=== PATIENT | female | born 1950 | race Caucasian/White ===

== ENCOUNTER 2022-12-23 17:44 | Emergency (ER) | payer SELFPAY ==
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
[2022-12-23 17:50] VITALS: BP 177/94; PULSE 100; O2SAT 99
[2022-12-23 17:58] VITALS: BP 163/79; PULSE 87; RESP 16; TEMP 36.6; O2SAT 97; BMI 40.5
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
--- NOTE | 2022-12-23 18:30 | MHC.EDTECH ---
patient came in via ems ,ekg taken ,blood and covid collected and sent to lab .
[2022-12-23 18:58] LABS: Basophils Percent Auto 0.3 % (0-2); Eosinophils Absolute Auto 0.1 X10*3/uL (0.0-0.4); Eosinophils Percent Auto 1.1 % (0-4); Hematocrit 35.5 % (37.0-47.0); Imm Gran Abs Auto 0.03 X10*3/uL (0.00-0.03); Imm Gran Pct Auto 0.3 % (0.0-0.4); Lymphocytes Absolute Auto 1.5 X10*3/uL (1.2-4.9); MANUAL DIFF FLAG NO; Mean Corpuscular HGB Conc 33.8 g/dl (31.0-35.0); Mean Corpuscular Hemoglobin 29.6 pg (27.0-33.0); Mean Corpuscular Volume 87.4 fL (80.0-98.0); Mean Platelet Volume 9.6 fL (9.4-12.3); Monocytes Absolute Auto 0.5 X10*3/uL (0.1-1.2); Monocytes Percent Auto 5.5 % (2-11); Neutrophils Absolute Auto 6.7 x10*3/uL (2.0-8.3); Neutrophils Percent Auto 75.8 % (45-73); Platelet Count 257 X10*3/uL (160-400); Red Blood Count 4.06 X10*6/uL (4.20-5.50); Red Cell Distribution Width 12.1 % (11.0-16.0); White Blood Count 8.8 X10*3/uL (4.8-10.8)
[2022-12-23 19:18] LABS: Alanine Aminotransferase 18 U/L (0-31); Albumin Level 3.8 g/dL (3.5-5.0); Alkaline Phosphatase 70 U/L (39-117); Anion Gap 11 (12-20); Aspartate Amino Transferase 14 U/L (5-31); Bilirubin Total 0.9 mg/dL (0.0-1.0); Blood Urea Nitrogen 18 mg/dL (9-16); Calcium 9.1 mg/dL (8.4-10.2); Carbon Dioxide 24 mmol/L (22-29); Chloride 108 mmol/L (96-108); Creatinine Clr Calc Pharmacy 73.1; Estimated Glomerular Filt Rate > 60; Glucose Random 139 mg/dL (60-115); Potassium 4.1 mmol/L (3.3-5.1); Sodium 139 mmol/L (135-145)
[2022-12-23 19:21] LABS: COVID-19 Test Negative (Negative); IDNOW Serial# 16C4AD1C
[2022-12-23 19:23] LABS: B Type Natriuretic Peptide 18 pg/mL (<100)
[2022-12-23 19:27] LABS: Troponin-I High Sensitivity < 3.5 ng/L (<3.5-17.0)
[2022-12-23] MEDS: iohexoL 350 MG/ML 100 ML INFUS..BTL IV (19:50)
[2022-12-23 20:00] VITALS: BP 144/67; PULSE 72; RESP 16; TEMP 36.8; O2SAT 98
--- NOTE | 2022-12-23 20:00 | MHC.EDTECH ---
pt 1999 rounding done ,vitals sign taken ,pt at bedside
[2022-12-23] MEDS: Cyclobenzaprine HCl 10 MG TABLET PO (21:03)
== END 2022-12-23 21:37 | disposition home or self-care (01) ==
PROVIDERS: Physician Assistant; Emergency Provider Emergency Medicine Emergency Medical Services; PCP Nurse Practitioner Family
DX: S09.90XA Unspecified injury of head, initial encounter (principal); S13.4XXA Sprain of ligaments of cervical spine, initial encounter; V43.52XA Car driver injured in collision with other type car in traffic accident, initial encounter; R06.02 Shortness of breath; E04.1 Nontoxic single thyroid nodule; Z20.822 Contact with and (suspected) exposure to COVID-19; Y93.89 Activity, other specified; Y92.414 Local residential or business street as the place of occurrence of the external cause; Y99.9 Unspecified external cause status
CPT/HCPCS: 36415; 70450; 71260; 72125; 74177; 80053; 83880; 84484; 85025; 87635; 93005; 99284; 99285; Q9967